=== PATIENT | female | born 1970 | race Caucasian/White ===

== ENCOUNTER 2019-10-15 16:45 | Outpatient (CLI) | payer SELFPAY ==
[2019-10-15 17:41] LABS: Basophils % 0.5 %; Eosinophils # 0.1 10^3/uL (0.0-0.8); Eosinophils % 1.2 %; Hematocrit 39.3 % (37.0-47.0); Hemoglobin 12.3 g/dL (11.5-15.3); Lymphocytes % 32.3 %; Mean Corpuscular HGB Conc 31.3 g/dL (30.0-36.0); Mean Corpuscular Volume 86.4 fL (81-99); Mean Platelet Volume 11.4 fL (7.4-10.4); Monocytes # 0.5 10^3/uL (0.2-0.9); Monocytes % 7.9 %; Neutrophils # 3.48 10^3/uL (1.8-7.7); Neutrophils % 57.6 %; Nucleated Red Blood Cells % 0 %; Platelet Count 295 10^3/cmm (130-400); Red Blood Count 4.55 10^6/uL (4.1-5.3); Red Cell Distribution Width 14.2 % (12.1-15.1)
[2019-10-15 18:08] LABS: Estmated Average Glucose 160; Hemoglobin A1C 7.2 % (4.0-6.0)
[2019-10-15 18:11] LABS: Alanine Aminotransferase 18 U/L (0-33); Albumin Level 4.5 g/dL (3.5-5.2); Alkaline Phosphatase 71 IU/L (35-105); Anion Gap 15.1 (5-19); Aspartate Amino Transferase 14 U/L (0-32); Blood Urea Nitrogen 15 mg/dL (6-20); Calcium 9.9 mg/dL (8.5-10.5); Carbon Dioxide 25 mmol/L (22-29); Chloride 99 mmol/L (98-107); Chol HDL Ratio 3.91 mg/dL (0.0-4.40); Cholesterol 211 mg/dL (0-200); Glomerular Filtration Rate 88.6 mL/min (90-130); Glucose 144 mg/dL (65-115); HDL Cholesterol 54 mg/dL (60-100); LDL Cholesterol Calculated 96 mg/dL (50-129); LDL HDL Ratio 1.78 RATIO (0.00-3.22); Osmolality Calculated 279 mOsm/kg (285-295); Potassium 4.1 mmol/L (3.5-5.1); Sodium 135 mmol/L (136-145); Total Bilirubin 0.2 mg/dL (0.15-1.2); Total Protein 7.5 g/dL (6.6-8.7); Triglycerides 306 mg/dL (0-150)
== END 2019-10-15 16:46 | disposition home or self-care (01) ==
PROVIDERS: Visit Provider General Practice
DX: M19.90 Unspecified osteoarthritis, unspecified site (principal)
CPT/HCPCS: 80053; 80061; 83036; 85025

== ENCOUNTER → 2020-10-06 10:01 | Outpatient (BNVA) | payer MEDICAID, SELFPAY | PROVIDERS: Referring Provider Physician Assistant; Visit Provider Anesthesiology Pain Medicine | DX: G89.29 Other chronic pain (principal); M51.16 Intervertebral disc disorders with radiculopathy, lumbar region; M48.062 Spinal stenosis, lumbar region with neurogenic claudication; M43.10 Spondylolisthesis, site unspecified; M79.604 Pain in right leg; M79.605 Pain in left leg | CPT/HCPCS: 99204 ==

== ENCOUNTER 2020-10-13 13:04 | Outpatient (CLI) | payer MEDICAID, SELFPAY ==
--- NOTE | 2020-10-13 13:09 | MM_ITS ---
WS: [id number] BILATERAL DIGITAL SCREENING MAMMOGRAPHY WITH CAD CLINICAL INFORMATION: SCREENING HISTORY: Screening mammogram. No current complaints. COMPARISON: and 2013 TECHNIQUE: Bilateral CC and MLO views. FINDINGS: Scattered fibroglandular densities bilaterally. No suspicious focal mass, asymmetry, calcifications, or architectural distortion. No evidence of malignancy. A few incidental punctate calcifications. Noe ent centered calcifications left breast. MM/[place] [id number] IMPRESSION: BI-RADS: 2-Benign FOLLOW UP: 1 Year Follow-up Recommend return to annual screening mammography.
== END 2020-10-13 13:05 | disposition home or self-care (01) ==
LOC: RADSHAW 13:07
PROVIDERS: PCP Physician Assistant; Visit Provider Physician Assistant
DX: Z12.31 Encounter for screening mammogram for malignant neoplasm of breast (principal)
CPT/HCPCS: 77067

== ENCOUNTER 2020-10-26 09:36 | Outpatient (CLI) | payer MEDICAID, SELFPAY ==
--- NOTE | 2020-10-26 11:00 | MR_ITS ---
WS: [id number] MRI LUMBAR SPINE NONCONTRAST HISTORY: M48.062 - Spinal stenosis, lumbar region with neurogenic ... COMPARISON: Lumbar spine radiographs 09/27/2020 TECHNIQUE: Sagittal and axial multisequence imaging is submitted. Very slight increase in the lower lumbar lordosis. L4 anterolisthesis by 2 mm. Chronic degenerative endplate changes at L4-5 narrowing of the disc space. Bilateral pars defects or evidence of L4. Conus terminates normally at L1-2 disc level. L1-L2: Normal. L2-L3: No significant facet joint arthritis. No disc protrusion or stenosis. L3-L4: Mild to moderate bilateral facet joint arthritis. Mild ligamentum flavum arthritis and a small amount of fluid in the facet joints. Very mild encroachment into the ventral thecal sac and the fora men. Mild central and bilateral foraminal stenosis. L4-L5: Diffuse moderate annular disc bulging and osteophytic ridging. LEFT subarticular disc protrusi on contacting the undersurface of L4. There is a smaller disc protrusion on the RIGHT minimally conta cting the undersurface of L4 on the RIGHT. Mild bilateral facet joint arthritis and ligamentum flavum hypertrophy. Mild central stenosis. L5-S1: Small amount of fluid in the facet joints. Mild facet joint arthritis resulting in mild bilate ral foraminal stenosis. MR/MR lumbar spine wo con* [id number] IMPRESSION: 1. Moderate to severe degenerative disc disease and osteochondrosis at L4-5 du e to bilateral pars defects and spondylosis. 2. Mild central, bilateral subarticular recess and foraminal stenosis at L4-5 due to combination of disc disease, disc protrusions and osteophytes. Bilateral subarticular disc protrusions contacts the undersurface of the L4 nerve roots. 3. Mild central and bilateral foraminal stenosis at L3-4 and mild bilateral fo raminal stenosis at L5-S1.
== END 2020-10-26 09:37 | disposition home or self-care (01) ==
LOC: RADSHAW 09:39
PROVIDERS: PCP Physician Assistant; Visit Provider Anesthesiology Pain Medicine
DX: M48.062 Spinal stenosis, lumbar region with neurogenic claudication (principal); M51.36 Other intervertebral disc degeneration, lumbar region
CPT/HCPCS: 72148

== ENCOUNTER → 2020-11-03 10:07 | Outpatient (BNVA) | payer MEDICAID, SELFPAY | PROVIDERS: PCP Physician Assistant; Visit Provider Anesthesiology Pain Medicine | DX: M51.16 Intervertebral disc disorders with radiculopathy, lumbar region (principal); M43.10 Spondylolisthesis, site unspecified; M47.816 Spondylosis without myelopathy or radiculopathy, lumbar region | CPT/HCPCS: 99214 ==

== ENCOUNTER → 2020-11-14 13:21 | Outpatient (BNVA) | payer MEDICAID, SELFPAY | PROVIDERS: PCP Physician Assistant; Visit Provider Anesthesiology Pain Medicine | DX: M47.816 Spondylosis without myelopathy or radiculopathy, lumbar region (principal) | CPT/HCPCS: 64493; 64494; 64495; J3490 ==

== ENCOUNTER → 2020-12-09 10:22 | Outpatient (BNVA) | payer MEDICAID, SELFPAY | PROVIDERS: PCP Physician Assistant; Visit Provider Anesthesiology Pain Medicine | DX: M51.16 Intervertebral disc disorders with radiculopathy, lumbar region (principal); M47.816 Spondylosis without myelopathy or radiculopathy, lumbar region; M43.10 Spondylolisthesis, site unspecified; M79.604 Pain in right leg; M79.605 Pain in left leg | CPT/HCPCS: 99214 ==

== ENCOUNTER 2021-08-01 14:18 | Emergency (ER) | payer MEDICAID, SELFPAY ==
[2021-08-01 14:26] VITALS: BP 158/100; PULSE 89; RESP 20; TEMP 36.6; O2SAT 96
--- NOTE | 2021-08-01 15:16 | W.ED.DENTAL ---
HPI - Dental/Oral General: Chief complaint: Dental/Oral Stated complaint: Tooth pain Time Seen by Provider: 08/01/21 15:03 Source: patient Mode of arrival: ambulatory Limitations: no limitations History of Present Illness: Patient is a 51-year-old female presents to ED today with a complaint of right lower molar tooth pain over the past few days. Patient feels like the tooth broke a few days ago and she has been having pain ever since. She does report a previous filling to that tooth. Patient states she does not have a dentist at this time. She has not noticed any facial or neck swelling. She is not having any trouble eating, drinking, swallowing, or trouble breathing. MD Complaint: tooth pain and tooth injury Teeth map: 1. Relieving factors: nothing Exacerbating factors: chewing Context: history of dental caries and poor dental care Associated symptoms: Denies fever(s) or odynophagia Treatment prior to arrival: oral analgesic Review of Systems Const: Denies: fever(s), chills, body aches, fatigue or malaise ENMT: Reports: dental pain; Denies: throat pain, odynophagia, mouth pain, swelling of lips/tongue or oral sores Card: Denies: chest pain Resp: Denies: dyspnea GI: Denies: nausea or vomiting Musc: Denies: neck pain Skin/Breast: Denies: rash Neuro: Denies: headache(s) PFSH ED PFSH: Family History Grandmother Cancer Father Cancer Social History Second hand smoke exposure: No Alcohol intake: never History of recent travel: No Physical Exam Const: COMMON NORMALS: no acute distress, patient oriented x3, no limitations and alert HENMT: COMMON NORMALS: normocephalic, atraumatic, hearing grossly normal bilaterally, external ears normal, EAC's normal, TM's normal bilaterally, Normal nasal mucous membranes and turbinates present, moist oral mucous membranes, oropharynx normal and gingiva normal HEAD & SCALP: normal to inspection, normocephalic and atraumatic FACE & SINUS: normal facial exam NOSE: Normal nasal mucous membranes and turbinates present EXTERNAL EAR: Yes external ears normal EXTERNAL AUDITORY CANAL: EAC's normal TYMPANIC MEMBRANE: TM's normal bilaterally MOUTH: Normal oral and palatal mucosa present, lip normal and tongue normal TEETH & GINGIVA: Yes caries TEETH & GINGIVA IMAGES: 1. dental filling/decay; possible tooth fracture; no surrounding edema/abscess THROAT: posterior oropharynx normal, tonsils normal and uvula midline Neck/C-Spine: COMMON NORMALS: full ROM, no lymphadenopathy and no meningeal signs GENERAL: Yes normal visual inspection, No anterior neck swelling and No submandibular swelling Neuro: COMMON NORMALS: patient oriented x3 SENSORIUM/ORIENTATION: Yes alert MENINGEAL SIGNS: Yes no meningeal signs Course Vital Signs: Vital signs: Vital Signs Temperature 97.9 F 08/01/21 14:26 Pulse Rate 89 08/01/21 14:26 Respiratory Rate 20 H 08/01/21 14:26 Blood Pressure 158/100 08/01/21 14:26 Pulse Oximetry 96 08/01/21 14:26 MDM - Dental/Oral Medical Decision Making Patient will be given dental resources and we will go ahead and place her on some Pen VK for antibiotic coverage. Return to ED precautions verbally discussed with patient. Discharge Plan Discharge Patient Disposition: Home Clinical Impression: Dental caries, Toothache Condition: Stable Prescriptions: New penicillin V potassium 500 mg tablet 500 mg PO Q8H 7 Days Qty: 21 0RF No Action aspirin 81 mg tablet,chewable 81 mg PO DAILY 0RF duloxetine 60 mg capsule,delayed release(DR/EC) 60 mg PO DAILY 0RF metformin 500 mg tablet 500 mg PO BID 0RF loratadine [Allergy Relief (loratadine)] 10 mg tablet 10 mg PO DAILY 0RF acetaminophen 500 mg capsule 500 mg PO Q6H PRN0RF lovastatin 10 mg tablet 10 mg PO DAILY 0RF naproxen 500 mg tablet 500 mg PO DAILY 0RF metformin 1,000 mg tablet 1,000 mg PO BID 0RF ciprofloxacin-fluocinolone 0.3-0.025 % (0.25 mL) solution 0.25 ml otic (ear) BID 0RF tizanidine 2 mg tablet 2 mg PO BID PRN (Reason: muscle spasticity) Qty: 60 0RF Discharge Orders: Discharge ED (Routine); Ordered 08/01/21 Ordered By: Awa Dixon Referrals: Rekha Kruse PA [Primary Care Provider] - Patient Instructions: Dental Caries (Cavities), Toothache (ED) Coding Level of Care Code ED [facility] for Carina Mcclendon
== END 2021-08-01 15:34 | disposition home or self-care (01) ==
PROVIDERS: Emergency Provider Physician Assistant; PCP Physician Assistant
DX: K08.89 Other specified disorders of teeth and supporting structures (principal); K02.9 Dental caries, unspecified
CPT/HCPCS: 99283

== ENCOUNTER 2022-07-24 11:16 | Outpatient (CLI) | payer MEDICAID, SELFPAY ==
--- NOTE | 2022-07-24 11:27 | MR_ITS ---
WS: [id number] EXAMINATION: MR shoulder LT wo con* [id number] ORDER DATE: 07/24/2022 11:59 AM COMPARISON: None. HISTORY: PAIN OF LEFT SHOULDER CONTRAST: None. TECHNIQUE: Axial T2 STAR, coronal proton density fat sat, sagittal T2 fat sat, sagittal proton densit y fat sat, axial proton density fat sat, coronal T2 fat sat, and coronal T1 performed. After contrast , axial T1 fat sat, coronal T1 fat sat, and sagittal T1 fat sat were performed. FINDINGS: Advanced osteoarthritis of the glenohumeral joint. Moderate degenerative arthritis AC joint with mild edema. Subacromial space is preserved. Mild edema at the AC joint. Hypertrophic changes involving th e humeral neck and glenoid labrum. Small amount of subacromial and subdeltoid fluid. Distal supraspinatus appears intact. Mild chronic thinning of the distal supraspinatus. Infraspinatus appears intact. Normal teres minor. Subscapularis appears intact distally. Biceps tendon appears dis located from the bicipital groove proximally with intrasubstance partial tear. Tiny intra-articular b iceps tendon with partial tear. Chronic appearing irregularity of the glenoid labrum. Small joint eff usion. MR/MR shoulder LT wo con* [id number] IMPRESSION: Exam somewhat limited due to patient positioning due to limited ran ge of motion 1. Advanced degenerative arthritis at the glenohumeral joint with hypertrophic spurring along the humeral neck and glenoid. 2. Rotator cuff is grossly intact. Mild chronic thinning of the distal suprasp inatus. 3. Biceps tendon appears dislocated from the bicipital groove with intrasubsta nce tear. Tiny intra-articular biceps tendon likely due to partial tear. 4. Moderate degenerative arthritis AC joint with mild edema small amount of ontiveros bacromial/subdeltoid fluid. 5. Small joint effusion and subcoracoid effusion.
== END 2022-07-24 11:17 | disposition home or self-care (01) ==
LOC: RAD 11:22
PROVIDERS: PCP Physician Assistant; Visit Provider Physician Assistant
DX: S46.212A Strain of muscle, fascia and tendon of other parts of biceps, left arm, initial encounter (principal); X58.XXXA Exposure to other specified factors, initial encounter; M25.512 Pain in left shoulder; M19.012 Primary osteoarthritis, left shoulder
CPT/HCPCS: 73221

== ENCOUNTER → 2022-09-05 15:19 | Outpatient (BNVA) | payer MEDICAID, SELFPAY | PROVIDERS: PCP Physician Assistant; Visit Provider Specialist | DX: M19.112 Post-traumatic osteoarthritis, left shoulder (principal) | CPT/HCPCS: 73030; 99204 ==

== ENCOUNTER 2023-08-05 14:42 | Emergency (ER) | payer MEDICAID, SELFPAY ==
[2023-08-05 14:58] VITALS: BP 160/102; PULSE 78; RESP 15; TEMP 36.6; O2SAT 97
--- NOTE | 2023-08-05 17:20 | W.ED.EXTPRO ---
Documented by User: ILA Rojas 08/05/23 17:29 HPI - Extremity Problem General: Chief complaint: Extremity Injury, Lower Stated complaint: left foot toe pain Time Seen by Provider: 08/05/23 16:18 Source: patient Mode of arrival: ambulatory Limitations: no limitations History of Present Illness: Patient is a 53-year-old female presenting to the emergency department complaining of left great toe pain for the past few days. Patient states she believes she has an ingrown toenail as she has a history of the same. She states in the past he has had a toenail removed because of this, and this improved her pain. She also notes there is significant mount of bruising and redness around the medial part of her left great toe. She still has sensation distally and is not complaining of any joint pain. She did try to remove a portion of the nail, which caused a good amount of bleeding, though has not reported any purulent drainage. She is not having any fevers or other systemic signs of infection. She has no history of diabetes. She does note she has been taking hydrocodone at home for her pain, which has not done much. No other raiz-lvb-zxrobma remedies attempted such as ice. Complaint: extremity pain Onset (ago): day(s) Pain Consistency: constant Location: left Quality: sharp Radiation: none Relieving factors: nothing Exacerbating factors: palpation Associated symptoms: Reports no associated symptoms; Deny chest pain, fever(s) or rash Review of Systems General: Reports: 10 or more systems reviewed and unremarkable except in HPI and below Const: Denies: fever(s), chills or fatigue Eyes: Denies: change in vision ENMT: Denies: throat pain, ear or mastoid pain or nasal discharge Card: Denies: chest pain, palpitations, swelling of feet/ankles or lightheadedness Resp: Denies: dyspnea, productive cough or wheezing GI: Denies: abdominal pain, nausea, vomiting, diarrhea or constipation : Denies: flank pain, difficulty voiding, dysuria or urinary frequency Musc: Reports: extremity pain (Left toe pain/infection); Denies: neck pain, back pain or joint pain Skin/Breast: Denies: rash Neuro: Denies: headache(s), numbness in extremities or weakness in extremities PFS ED PFSH: Family History Grandmother Cancer Father Cancer Social History Second hand smoke exposure: No Alcohol intake: never Substance/Drug Use: never Physical Exam Const: COMMON NORMALS: no acute distress, patient oriented x3 and no limitations GENERAL APPEARANCE: cooperative and comfortable NUTRITIONAL APPEARANCE: obese Resp: COMMON NORMALS: normal respiratory effort, No retractions, No use of accessory muscles and clear to auscultation bilaterally AUSCULTATION: clear to auscultation bilaterally Cardio: COMMON NORMALS: regular rate, regular rhythm, No gallops present (Cardio), No clicks present (Cardio), No murmurs present (Cardio) and Peripheral pulses 2+ throughout RATE: regular rate RHYTHM: regular rhythm PERIPHERAL PULSES: Peripheral pulses 2+ throughout Extremity: NARRATIVE EXTREMITY EXAM: Left great toe has moderate amount of erythema with some bruising to the medial aspect of the nail. No fluctuance appreciated. No active purulent drainage or bleeding. Distal neurovascular exam is intact. Moderate tenderness to palpation about the distal aspect of the left great toe. No joint pain or other proximal findings reported. Nailbed otherwise intact. Neuro: COMMON NORMALS: patient oriented x3, moves all extremities, no focal motor deficits and no sensory deficits noted Psych: COMMON NORMALS: mental status grossly normal Skin: NARRATIVE SKIN EXAM: See extremity exam Procedures Abscess I/D Site: foot Side (if applicable): left Sedation/analgesia: other (Ring block performed) Local Anesthetic: lidocaine 1% Amount of anesthesia used (mL): 5 Technique: needle aspiration Irrigation: Yes Packing used?: none Course Vital Signs: Vital signs: Vital Signs Temperature 97.8 F 08/05/23 14:58 Pulse Rate 78 08/05/23 14:58 Respiratory Rate 15 08/05/23 14:58 Blood Pressure 160/102 08/05/23 14:58 Pulse Oximetry 97 08/05/23 14:58 Oxygen Delivery Me thod Room Air 08/05/23 14:58 MDM - Extremity (Nontraumatic) Medical Decision Making Patient seen for left great toe pain for the past few days. Vitals normal on arrival, condition has remained stable. Exam findings consistent with a paronychia. An I&D was attempted, however no purulent drainage expressed. Patient did note pain relief from digital block, as well as pressure release. Minimal blood loss was noted. Patient will be treated with oral and topical antibiotics, and referred to podiatry for further evaluation. Cannot rule out a fungal cause for her pain, though she does not have history of diabetes. I did inform her that if she continues to have worsening pain or signs of infection, to return for reevaluation. Patient will continue to take her hydrocodone at home for pain, as well as to do warm soaks and ice for added relief. Return precautions were given, and patient agrees with plan. No radiology studies performed this visit Discharge Plan Discharge Patient Disposition: Home Clinical Impression: Paronychia due to ingrown nail Condition: Stable Prescriptions: New cephalexin 500 mg capsule 500 mg PO TID 7 Days Qty: 21 0RF mupirocin 2 % ointment 1 applic topical BID Qty: 15 0RF No Action aspirin 81 mg tablet,chewable 81 mg PO DAILY duloxetine 60 mg capsule,delayed release(DR/EC) 60 mg PO DAILY metformin 500 mg tablet 500 mg PO BID loratadine [Allergy Relief (loratadine)] 10 mg tablet 10 mg PO DAILY acetaminophen 500 mg capsule 500 mg PO Q6H PRN lovastatin 10 mg tablet 10 mg PO DAILY naproxen 500 mg tablet 500 mg PO DAILY metformin 1,000 mg tablet 1,000 mg PO BID tizanidine 2 mg tablet 2 mg PO BID PRN (Reason: muscle spasticity) Qty: 60 0RF Discharge Orders: Discharge ED (Routine); Ordered 08/05/23 Ordered By: Pavel Mitchell Referrals: Rekha Kruse PA [Primary Care Provider] - Discharge Diet: Usual diet Discharge Activity: Increase activity as tolerated Patient Instructions: Paronychia (ED) Activity Restrictions/Additional Instructions: Warm water soaks for 10-15 minutes every few hours. Afterwards, you may apply mupirocin ointment. Take Keflex as prescribed. You may apply ice for added relief. Follow-up with podiatry as instructed. If you have any new or concerning symptoms, please return for reevaluation. Monitor for any worsening signs of infection. Coding Level of Care Code ED Computer Technical Specialist for Chg Fwd Documented by User: Foreign Gomes DO 08/06/23 10:57 HPI - Extremity Problem General: Chief complaint: Extremity Injury, Lower Stated complaint: left foot toe pain Time Seen by Provider: 08/05/23 16:18 PFSH ED PFSH: Family History Grandmother Cancer Father Cancer Social History Second hand smoke exposure: No Alcohol intake: never Substance/Drug Use: never Course Vital Signs: Vital signs: Vital Signs Temperature 97.8 F 08/05/23 14:58 Pulse Rate 78 08/05/23 14:58 Respiratory Rate 15 08/05/23 14:58 Blood Pressure 160/102 08/05/23 14:58 Pulse Oximetry 97 08/05/23 14:58 Oxygen Delivery Me thod Room Air 08/05/23 14:58 MDM - Extremity (Nontraumatic) Medical Decision Making Patient seen for left great toe pain for the past few days. Vitals normal on arrival, condition has remained stable. Exam findings consistent with a paronychia. An I&D was attempted, however no purulent drainage expressed. Patient did note pain relief from digital block, as well as pressure release. Minimal blood loss was noted. Patient will be treated with oral and topical antibiotics, and referred to podiatry for further evaluation. Cannot rule out a fungal cause for her pain, though she does not have history of diabetes. I did inform her that if she continues to have worsening pain or signs of infection, to return for reevaluation. Patient will continue to take her hydrocodone at home for pain, as well as to do warm soaks and ice for added relief. Return precautions were given, and patient agrees with plan. Chart reviewed Discharge Plan Discharge Patient Disposition: Home Clinical Impression: Paronychia due to ingrown nail Condition: Stable Prescriptions: New cephalexin 500 mg capsule 500 mg PO TID 7 Days Qty: 21 0RF mupirocin 2 % ointment 1 applic topical BID Qty: 15 0RF No Action aspirin 81 mg tablet,chewable 81 mg PO DAILY duloxetine 60 mg capsule,delayed release(DR/EC) 60 mg PO DAILY metformin 500 mg tablet 500 mg PO BID loratadine [Allergy Relief (loratadine)] 10 mg tablet 10 mg PO DAILY acetaminophen 500 mg capsule 500 mg PO Q6H PRN lovastatin 10 mg tablet 10 mg PO DAILY naproxen 500 mg tablet 500 mg PO DAILY metformin 1,000 mg tablet 1,000 mg PO BID tizanidine 2 mg tablet 2 mg PO BID PRN (Reason: muscle spasticity) Qty: 60 0RF Discharge Orders: Discharge ED (Routine); Ordered 08/05/23 Ordered By: Pavel Mitchell Referrals: Rekha Kruse PA [Primary Care Provider] - Discharge Diet: Usual diet Discharge Activity: Increase activity as tolerated Patient Instructions: Paronychia (ED) Activity Restrictions/Additional Instructions: Warm water soaks for 10-15 minutes every few hours. Afterwards, you may apply mupirocin ointment. Take Keflex as prescribed. You may apply ice for added relief. Follow-up with podiatry as instructed. If you have any new or concerning symptoms, please return for reevaluation. Monitor for any worsening signs of infection. Coding Level of Care Code ED Computer Technical Specialist for Carina Mcclendon
--- NOTE | 2023-08-06 12:45 | DCPLANNER ---
Message sent to Podiatry for follow up-
== END 2023-08-05 17:07 | disposition home or self-care (01) ==
PROVIDERS: Emergency Provider Physician Assistant; PCP Physician Assistant
DX: L03.032 Cellulitis of left toe (principal); L60.0 Ingrowing nail; Z79.82 Long term (current) use of aspirin; Z79.84 Long term (current) use of oral hypoglycemic drugs
CPT/HCPCS: 10160; 99283

== ENCOUNTER → 2023-08-15 10:49 | Outpatient (BNVA) | payer MEDICAID, SELFPAY | PROVIDERS: PCP Physician Assistant; Visit Provider Podiatrist Foot & Ankle Surgery | DX: L60.0 Ingrowing nail (principal) | CPT/HCPCS: 99203 ==

== ENCOUNTER 2025-03-09 18:08 | Emergency (ER) | payer MEDICAID, SELFPAY ==
--- OUTSIDE RECORDS SUMMARY | 2024-05-07 07:00 | XMS_ITS ---
Author Organization [facility] Address [address] [place] [address] Support Name Relationship Address , Gurjit Duran Emergency Contact Unknown Unavailable Shruti Duran Guarantor Unknown [phone] Care Team Providers Care Investment Advisor Name Role Phone Uriah THORPE, Rekha Primary Care Provider Ghazala Jacobyer Loli Unavailable [phone] Mia Leyva Unavailable [phone] REASON FOR VISIT [id number] Social History Sex Assigned At : Social History Observation Description Sex Assigned At Female Encounters Encounter Location Date Provider Diagnosis [facility] [address] [place] [address] 05/07/2024 Mia Leyva Plan Of Treatment Next Appt Details Provider Name:Marcel Gallo, 04/28/2025 02:00:00 PM, [address] [place], [address], Progress Notes * Shruti DURAN MDOB:1970 (54 yo F)Acc No.[id number]:05/07/2024 Patient: Queta Shruti hu Provider: Edward Leyva MD :1970 A ge:53 Y S ex:Female Date:05/07/2024 Address:[address] [place], [place] [id number] Pcp:ILA Lees Subjective: * Chief Complaints: * [phone] [id number] Billing Information: * Procedure Codes: * Electronic signature of Berta Leyva MD on 03/09/2025 at 06:12 PM CP BLEACHER OPERATOR Sign off status: Pending * Provider: Edward Leyva MD Date: 0 05/07/2024 Generated for Pamela duffy/Unique/Maryuri on: 1 05/10/2024 06:12 PM CP BLEACHER OPERATOR
--- OUTSIDE RECORDS SUMMARY | 2025-03-09 18:11 | XMS_ITS | Clinical Summary ---
Author Organization [facility] Address [address] [place] [address] Phone Care Team Providers Care Neon Sign Erector Name Role Phone Foreign Gomes Primary Care Provider [phone] Allergies No known active allergies Medications HYDROcodone-tatiana taminophen (NORCO) 5-325 mg tabletIndicatio ns:Acute bilateral low back pain without sciatica,Acute pain of left shoulder Take 1 Tablet by mouth every 8 hours as needed for Pain, Moderate. Max Daily Amount: 3 Tablets 10 Tablet 04/22/2022 Active Social History Tobacco Use Types Packs/Day Years Used Date Smoking Tobacco: Never Smokeless Tobacco: Never Tobacco Cessation:Counseling Given: Not Answered Alcohol Use Standard Drinks/Week Comments Never 0 (1 standard drink = 0.6 oz pur e alcohol) Comments Unknown Sex and Gender Information Value Date Recorded Sex Assigned at Not on file Legal Sex Female 1:44 PM HATCH TENDER Gender Identity Not on file Sexual Orientation Not on file Last Filed Vital Signs Vital Sign Reading Time Taken Comments Blood Pressure 156/99 04/21/2022 10:53 PM HATCH TENDER Pulse 90 04/21/2022 10:53 PM HATCH TENDER Temperature 36.7 C (98 F) 04/21/2022 10:53 PM HATCH TENDER Respiratory Rate 16 04/21/2022 10:5 3 PM HATCH TENDER Oxygen Saturation 100% 04/21/2022 10: 53 PM HATCH TENDER Inhaled Oxygen Concentration - - Weight 133.8 kg (295 lb) 04/21/2022 1:5 0 PM HATCH TENDER unable to obtain actual Height - - Body Mass Index - - Plan of Treatment Health Maintenance Due Date Last Done Comments DTAP/TDAP/TD VACCINES (1 - Tdap) 1988 HEPATITIS B VACCINES (1 of 3 - 19+ 3-dose series) 04/1988 HPV/Cotest (21-29) 1990 CERVICAL CANCER SCREENING 07/25/1999 HPV/Cotest (30-65) 07/25/1999 PAP SMEAR 07/25/1999 BREAST CANCER SCREENING 2009 COLORECTAL SCREENING 2014 Colorectal Cancer Screening 2014 FIT-DNA Q 3 years 2014 FIT/FOBT Q 1 year 2014 Flex Sig/CT Colonography Q 5 years 2014 ZOSTER VACCINE (1 of 2) 07/25/2019 INFLUENZA VACCINE (#1) 2024 [place] Sub[place] Plan / Payer (Ef fective 2021-Present) Name:Shruti Duran Relation to Subscriber:Self Name:Shruti Duran Payer ID:Not on file Group ID:Not on file Type:Medicaid Address: [address] Care Teams Neon Sign Erector Relationship Specialty Start Date End Date Foreign Gomes DO PCP - General Family Practice 04/22/22
--- OUTSIDE RECORDS SUMMARY | 2025-03-09 18:11 | XMS_ITS | Data Portability ---
Author Organization [facility] Sathya Pemberton [facility] Address [address] [facility] [address] [place] [address] Care Team Providers Care Writing Center Director Name Role Phone REKHA KRUSE Primary Care Provider Unavailabl e Assessment No assessment recorded. Plan of Treatment Reminders Order Date Submit Date Provider Last Modified By Organization Details Last Modified Time Details Appointments None recorded. Lab HbA1c (hemoglobin A1c), blood 2024 025 [email or web address] 1 [facility], [address], [place], [address], 5 12:28:13 BMP, serum or plasma 2024 025 [facility], [address], [address], [place], [address], 5 16:07:51 microalbumi n/creatinin e, mass ratio, urine 2024 025 [employer] [facility], [address] [place] [address] [address], [address], [place], [address], 5 12:00:38 hemoglobin A1C/hemoglo bin total, QN, blood 2024 025 [facility], [address], [address], [place], [address], 5 16:40:45 CMP, serum or plasma [address] [facility], [address], [address], [place], [address], 5 16:07:13 CBC [address] [facility], [address], [address], [place], [address], 5 15:42:45 HbA1c (hemoglobin A1c), blood 2023 024 [email or web address], [address], [address], [place], [address], 4 07:25:42 CMP, serum or plasma 2023 024 [facility], [address], [place], [address], 4 17:07:08 CBC [address] [facility] [facility], [address], [address], [place], [address], 4 16:43:48 TSH, serum or plasma 2023 024 [email or web address], [address], [address], [place], [address], 4 07:25:42 HbA1c (hemoglobin A1c), blood [address] [facility] ([facility]), [address] [place], [address], 4 17:03:56 CMP, serum or plasma [address] [facility], [address] [facility] 1, [place], [address], 4 17:14:26 lipid panel, blood 2023 024 [facility], [address] [facility] 1, [place], [address], 4 17:14:28 CBC 2023 024 [facility], [address] [facility] 1, [place], [address], 4 16:44:40 TSH, serum or plasma [address] [facility] ([facility] [address] [place], [address], 4 17:41:10 Referral otolaryngol ogist referral 2023 024 [email or web address] 8 Donny Johnson MD, [address] , [place], [address], 4 13:32:51 Procedures tendon sheath injection (PROC) [address], [address] [facility] 1, [place], [address], 5 15:18:25 Surgeries None recorded. Imaging nerve conduction study [address] [facility], [address] [place], [address], 5 16:52:00 MAMMO, screening, digital, bilateral 2024 025 [facility] (Scheduling Orders), [address] [place], [address], 5 09:03:04 XR, wrist, 3 or more view 2024 025 [email or web address] 2 [facility] ([facility]), [address] [place], [address], 5 16:05:08 MAMMO, screening, digital, bilateral 2023 024 [email or web address] 2 [facility] (Scheduling Orders), [address] [place], [address], 4 15:46:47 XR, shoulder, 2 or more view 2023 024 [email or web address] [address] [place], [address], 4 09:28:14 Medication Orders triamcinolo ne acetonide 40 mg/mL suspension for injection 2024 025 [email or web address] 1 Not available 5 15:44:49 Ozempic 1 mg/dose (4 mg/3 mL) subcutaneou s pen injector 2024 025 [facility]armacy #[id number], [address] [facility] [address], [address], 5 15:06:09 OneTouch Ultra Test strips 2024 025 [facility]/Pharmacy #[id number], [address] [facility] [address], [address], 5 14:14:47 oxybutynin chloride ER 10 mg tablet,exte nded release 24 hr 2023 024 [facility]/Pharmacy #[id number], [address] [facility] [address], [address], 4 16:00:37 Trulicity 3 mg/0.5 mL subcutaneou s pen injector 2023 025 [facility]/Pharmacy #[id number], [address], [address], [place], [address], 5 15:09:44 loratadine 10 mg tablet 2023 024 [facility]/Pharmacy #[id number], [address], [address], [place], [address], 4 16:00:37 acyclovir [address] [id number], [address], [address], [place], [address], 4 15:33:35 duloxetine 60 mg capsule,del ayed release 2023 024 [id number], [address], [address], [place], [address], 4 16:25:04 Ozempic 0.25 mg or 0.5 mg (2 mg/3 mL) subcutaneou s pen injector [address] [id number], [address], [address], [place], [address], 4 13:28:30 Symbicort 160 mcg-4.5 mcg/actuati on HFA aerosol inhaler 2023 024 [id number], [address], [address], [place], [address], 4 16:25:04 sumatriptan 50 mg tablet 2023 024 [id number], [address], [address], [place], [address], 4 16:25:03 Aimovig Autoinjecto r 140 mg/mL subcutaneou s auto-inject or 2023 024 [facility]acy #[id number], [address], [address], [place], [address], 4 15:33:48 metoprolol succinate ER 50 mg tablet,exte nded release 24 hr 2023 024 [facility] #[id number], [address], [address], [place], [address], 4 16:25:03 albuterol sulfate 2.5 mg/3 mL (0.083 %) solution for nebulizatio n 2023 024 [email or web address] [facility] #[id number], [address], [address], [place], [address], 4 16:25:04 levothyroxi ne 50 mcg tablet 2023 024 [email or web address] 1 [facility] #[id number], [address], [address], [place], [address], 5 18:44:30 Patient TargetsNo targets recorded. 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 Hearing loss of left ear Referring Physician: eRkha Kruse, Family Medicine, Encounter Date: 11/07/2023 Results Created Date Observation Date Name Description Value Unit Range Abnormal Flag Note LastModifiedBy Organization Detail LastModifiedTime 11/07/19 24 11/07/2023 CBC WBC 4.0 x10 4.0-10 .5 Not Available [facility] [address], [place], [address], 11/07/2023 16:44:40 11/07/19 24 11/07/2023 CBC RBC 4.47 x10 3.50-5 .50 Not Available [facility] [address] [facility] 1, [place], [address], 11/07/2023 16:44:40 11/07/19 24 11/07/2023 CBC HGB 12.1 g/dL 12.0-1 6.0 Not Available [facility] [address] [facility] 1, [place], [address], 11/07/2023 16:44:40 11/07/19 24 11/07/2023 CBC HCT 36.0 % 37.0-4 7.0 low Not Available [facility] [address] [facility] 1, [place], [address], 11/07/2023 16:44:40 11/07/19 24 11/07/2023 CBC MCV 80.5 fL 80.0-9 9.9 Not Available [facility] [address] [facility] 1, [place], [address], 11/07/2023 16:44:40 11/07/19 24 11/07/2023 CBC MCH 27.0 pg 27.0-3 2.0 Not Available [facility] [address] [facility] 1, [place], [address], 11/07/2023 16:44:40 11/07/19 24 11/07/2023 CBC MCHC 33.5 g/dL 32.0-3 6.0 Not Available [facility] [address] [facility] 1, [place], [address], 11/07/2023 16:44:40 11/07/19 24 11/07/2023 CBC RDW 17.0 % 11.5-1 4.5 high Not Available [facility] [address] [facility] [address], [place], [address], 11/07/2023 16:44:40 11/07/19 24 11/07/2023 CBC plt 204.2 x10 140.0- 451.0 Not Available [facility] [address] [facility] [address], [place], [address], 11/07/2023 16:44:40 11/07/19 24 11/07/2023 CBC lymphocytes % 32.6 % 20.0-5 0.0 Not Available [facility] [address] [facility] [address], [place], [address], 11/07/2023 16:44:40 11/07/19 24 11/07/2023 CBC granulcytes % 55.0 % 30.0-7 0.0 Not Available [facility] [address] [address], [place], [address], 11/07/2023 16:44:40 11/07/19 24 11/07/2023 CBC monocytes % 10.2 % 2.0-16 .0 Not Available [facility] [address] [facility] 1, [place], [address], 11/07/2023 16:44:40 11/07/19 24 11/07/2023 CBC granulcytes# 2.2 x10 Not Chiara ilable [facility] [address] [address], [place], [address], 11/07/2023 16:44:40 11/07/19 24 11/07/2023 CBC lymphocytes # 1.3 x10 Not Available [facility] [address] [address], [place], [address], 11/07/2023 16:44:40 11/07/19 24 11/07/2023 CBC monocytes # 0.4 x10 Not Avai lable [facility] [address] [facility] [facility], [place], [address], 11/07/2023 16:44:40 11/07/19 24 11/07/2023 CMP (FEMA LE) glucose 246.0 mg/dL 60.0-9 9.0 high Not Available [facility] [address] [facility], [place], [address], 11/07/2023 17:14:26 11/07/19 24 11/07/2023 CMP (FEMA LE) BUN (blood urea nitrogen) 13.0 mg/dL 10.0-2 6.0 Not Available [facility] [address] [facility], [place], [address], 11/07/2023 17:14:26 11/07/19 24 11/07/2023 CMP (FEMA LE) creatinine (serum) 0.7 mg/dL 0.4-1. 5 Not Available [facility] [address] [facility] 1, [place], [address], 11/07/2023 17:14:26 11/07/19 24 11/07/2023 CMP (FEMA LE) BUN/creatini ne ratio 19.70 ratio Not Available [facility] [address] [facility] 1, [place], [address], 11/07/2023 17:14:26 11/07/19 24 11/07/2023 CMP (FEMA LE) eGFR calculated 99.2 Not Available [facility] [address] [facility], [place], [address], 11/07/2023 17:14:26 11/07/19 24 11/07/2023 CMP (FEMA LE) total protein 8.1 g/dL 6.0-8. 5 Not Available [facility] [address] [facility], [place], [address], 11/07/2023 17:14:26 11/07/19 24 11/07/2023 CMP (FEMA LE) total bilirubin 0.3 mg/dL 0.2-1. 3 Not Available [facility] [address] [facility] [address] [facility] 1, [place], [address], 11/07/2023 17:14:26 11/07/19 24 11/07/2023 CMP (FEMA LE) albumin 4.3 g/dL 3.5-5. 5 Not Available [facility] [address] [facility] 1, [place], [address], 11/07/2023 17:14:26 11/07/19 24 11/07/2023 CMP (FEMA LE) globulin 3.8 calc Not Available [facility] [address] [facility], [place], [address], 11/07/2023 17:14:26 11/07/19 24 11/07/2023 CMP (FEMA LE) AST (SGOT) 29.0 U/L 0.0-46 .0 Not Available [facility] [address] [facility], [place], [address], 11/07/2023 17:14:26 11/07/19 24 11/07/2023 CMP (FEMA LE) altv (SGPT) 24.0 U/L 13.0-6 9.0 normal Not Available [facility] [address] [facility] [address] [facility] [address] [facility] 1, [place], [address], 11/07/2023 17:14:26 11/07/19 24 11/07/2023 CMP (FEMA LE) A/G ratio 1.1 ratio Not Available [facility] [address] [facility], [place], [address], 11/07/2023 17:14:26 11/07/19 24 11/07/2023 CMP (FEMA LE) ALP phos 88.0 U/L 30.0-1 40.0 normal Not Available [facility] [address] [facility] 1, [place], [address], 11/07/2023 17:14:26 11/07/19 24 11/07/2023 CMP (FEMA LE) calcium 9.8 mg/dL 8.4-10 .5 Not Available [facility] [address] [facility] 1, [place], [address], 11/07/2023 17:14:26 11/07/1911/07/2023 CMP (FEMA LE) sodium 138.0 mmol/ L 136.0- 145.0 Not Available [facility] [address] [facility] 1, [place], [address], 11/07/2023 17:14:26 11/07/19 24 11/07/2023 CMP (FEMA LE) potassium 4.3 mmol/ L 3.5-5. 1 Not Available [facility] [address] [facility] 1, [place], [address], 11/07/2023 17:14:26 11/07/19 24 11/07/2023 CMP (FEMA LE) chloride 104.0 mmol/ L 98.0-1 10.0 normal Not Available [facility] [address] [facility] 1, [place], [address], 11/07/2023 17:14:26 11/07/19 24 11/07/2023 CMP (FEMA LE) C02 28.0 mmol/ L 22.0-3 1.0 Not Available [facility] [address] [facility] 1, [place], [address], 11/07/2023 17:14:26 11/07/19 24 11/07/2023 CMP (FEMA LE) anion gap 6.0 calc Not Available [facility] [address] [facility] 1, [place], [address], 11/07/2023 17:14:26 11/07/19 24 11/07/2023 CMP (FEMA LE) osmolality 292.6 calc Not Available [facility] [address] [facility] 1, [place], [address], 11/07/2023 17:14:26 11/07/19 24 11/07/2023 LIPID PROFI LE (FEMA LE) cholesterol 202.0 mg/dL 0.0-20 0.0 high Not Available [facility] [address] [facility] 1, [place], [address], 11/07/2023 17:14:28 11/07/19 24 11/07/2023 LIPID PROFI LE (FEMA LE) trig 358.0 mg/dL 0.0-15 0.0 high Not Available [facility] [address] [facility] 1, [place], [address], 11/07/2023 17:14:28 11/07/19 24 11/07/2023 LIPID PROFI LE (FEMA LE) HDL - direct 51.0 mg/dL >40.0 Not Available [facility] [address] [facility] 1, [place], [address], 11/07/2023 17:14:28 11/07/19 24 11/07/2023 LIPID PROFI LE (FEMA LE) VLDL - direct 71.6 mg/dL Not Available [facility] [address] [facility] 1, [place], [address], 11/07/2023 17:14:28 11/07/19 24 11/07/2023 LIPID PROFI LE (FEMA LE) LDL - direct 79.4 mg/dL 0.0-13 0.0 Not Available [facility] [address] [facility] 1, [place], [address], 11/07/2023 17:14:28 11/07/19 24 11/07/2023 TSH, serum or plasm a TSH 8.07 uIU/m L 0.49-3 .82 Not Available [facility] ([facility]) [address] [place], [address], 11/07/2023 16:11:49 11/07/19 24 11/07/2023 HbA1c (hemo globi n A1c), blood HbA1c 8.0 Not Available [facility] ([facility]) [address] [place], [address], 11/07/2023 16:09:58 11/21/19 24 11/21/2023 colon cance r scree hina, stool cologard neg Not Available [facility] [address], [place], [address], 11/27/2023 11:08:25 02/11/20 24 02/11/2024 CBC WBC 5.0 x10 4.0-10 .5 Not Available [facility] [address] [facility] 1, [place], [address], 02/11/2024 16:43:48 02/11/20 24 02/11/2024 CBC RBC 4.60 x10 3.50-5 .50 Not Available [facility] [address] [facility] 1, [place], [address], 02/11/2024 16:43:48 02/11/20 24 02/11/2024 CBC HGB 13.0 g/dL 12.0-1 6.0 Not Available [facility] [address] [facility] 1, [place], [address], 02/11/2024 16:43:48 02/11/20 24 02/11/2024 CBC HCT 38.1 % 37.0-4 7.0 Not Available [facility] [address] [address] [facility] 1, [place], [address], 02/11/2024 16:43:48 02/11/20 24 02/11/2024 CBC MCV 82.8 fL 80.0-9 9.9 Not Available [facility] [address] [facility] [address] [facility] 1, [place], [address], 02/11/2024 16:43:48 02/11/2002/11/2024 CBC MCH 28.3 pg 27.0-3 2.0 Not Available [facility] [address] 1, [place], [address], 02/11/2024 16:43:48 02/11/20 24 02/11/2024 CBC MCHC 34.2 g/dL 32.0-3 6.0 Not Available [facility] [address] [facility] [address] [facility] 1, [place], [address], 02/11/2024 16:43:48 02/11/2002/11/2024 CBC RDW 14.9 % 11.5-1 4.5 high Not Available [facility] [address] [facility] [address] [facility] 1, [place], [address], 02/11/2024 16:43:48 02/11/2002/11/2024 CBC plt 189.2 x10 140.0- 451.0 Not Available [facility] [address] [facility] [address] [facility] 1, [place], [address], 02/11/2024 16:43:48 02/11/20 24 02/11/2024 CBC lymphocytes % 33.7 % 20.0-5 0.0 Not Available [facility] [address] [facility] [address] [facility] 1, [place], [address], 02/11/2024 16:43:48 02/11/20 24 02/11/2024 CBC granulcytes % 54.8 % 30.0-7 0.0 Not Available [facility] [address] [facility], [place], [address], 02/11/2024 16:43:48 02/11/20 24 02/11/2024 CBC monocytes % 9.8 % 2.0-16 .0 Not Available [facility] [address] [facility], [place], [address], 02/11/2024 16:43:48 02/11/20 24 02/11/2024 CBC granulcytes# 2.7 x10 Not Chiara ilable [facility] [address] [facility] [address], [place], [address], 02/11/2024 16:43:48 02/11/20 24 02/11/2024 CBC lymphocytes # 1.7 x10 Not Available [facility] [address] [facility] 1, [place], [address], 02/11/2024 16:43:48 02/11/20 24 02/11/2024 CBC monocytes # 0.5 x10 Not Avai lable [facility] [address] [facility] 1, [place], [address], 02/11/2024 16:43:48 02/11/20 24 02/11/2024 HBA1C hemaglobin A1C 6.5 4.2-6. 5 Not Available [facility] [address] [facility] 1, [place], [address], 02/11/2024 16:55:38 02/11/20 24 02/11/2024 CMP (FEMA LE) glucose 104.0 mg/dL 60.0-9 9.0 high Not Available [facility] [address] [address], [place], [address], 02/11/2024 17:07:08 02/11/20 24 02/11/2024 CMP (FEMA LE) BUN (blood urea nitrogen) 12.0 mg/dL 10.0-2 6.0 Not Available [facility] [address] [facility] 1, [place], [address], 02/11/2024 17:07:08 02/11/20 24 02/11/2024 CMP (FEMA LE) creatinine (serum) 0.7 mg/dL 0.4-1. 5 Not Available [facility] [address] [facility] 1, [place], [address], 02/11/2024 17:07:08 02/11/20 24 02/11/2024 CMP (FEMA LE) BUN/creatini ne ratio 17.14 ratio Not Available [facility] [address] [address], [place], [address], 02/11/2024 17:07:08 02/11/20 24 02/11/2024 CMP (FEMA LE) eGFR calculated 92.7 Not Available [facility] [address] [facility] 1, [place], [address], 02/11/2024 17:07:08 02/11/20 24 02/11/2024 CMP (FEMA LE) total protein 8.5 g/dL 6.0-8. 5 Not Available [facility] [address] [address], [place], [address], 02/11/2024 17:07:08 02/11/20 24 02/11/2024 CMP (FEMA LE) total bilirubin 0.4 mg/dL 0.2-1. 3 Not Available [facility] [address] [address], [place], [address], 02/11/2024 17:07:08 02/11/20 24 02/11/2024 CMP (FEMA LE) albumin 4.7 g/dL 3.5-5. 5 Not Available [facility] [address] [facility], [place], [address], 02/11/2024 17:07:08 02/11/20 24 02/11/2024 CMP (FEMA LE) globulin 3.8 calc Not Available [facility] [address] [facility] 1, [place], [address], 02/11/2024 17:07:08 02/11/20 24 02/11/2024 CMP (FEMA LE) AST (SGOT) 19.0 U/L 0.0-46 .0 Not Available [facility] [address] [facility], [place], [address], 02/11/2024 17:07:08 02/11/20 24 02/11/2024 CMP (FEMA LE) altv (SGPT) 20.0 U/L 13.0-6 9.0 normal Not Available [facility] [address] [facility], [place], [address], 02/11/2024 17:07:08 02/11/20 24 02/11/2024 CMP (FEMA LE) A/G ratio 1.2 ratio Not Available [facility] [address] [facility] 1, [place], [address], 02/11/2024 17:07:08 02/11/20 24 02/11/2024 CMP (FEMA LE) ALP phos 80.0 U/L 30.0-1 40.0 normal Not Available [facility] [address] [facility], [place], [address], 02/11/2024 17:07:08 02/11/20 24 02/11/2024 CMP (FEMA LE) calcium 9.9 mg/dL 8.4-10 .5 Not Available [facility] [address] [facility] 1, [place], [address], 02/11/2024 17:07:08 02/11/2002/11/2024 CMP (FEMA LE) sodium 140.0 mmol/ L 136.0- 145.0 Not Available [facility] [address] [facility] 1, [place], [address], 02/11/2024 17:07:08 02/11/2002/11/2024 CMP (FEMA LE) potassium 4.2 mmol/ L 3.5-5. 1 Not Available [facility] [address] [facility] 1, [place], [address], 02/11/2024 17:07:08 02/11/20 24 02/11/2024 CMP (FEMA LE) chloride 102.0 mmol/ L 98.0-1 10.0 normal Not Available [facility] [address] [facility] 1, [place], [address], 02/11/2024 17:07:08 02/11/2002/11/2024 CMP (FEMA LE) C02 30.0 mmol/ L 22.0-3 1.0 Not Available [facility] [address] [facility] 1, [place], [address], 02/11/2024 17:07:08 02/11/2002/11/2024 CMP (FEMA LE) anion gap 8.0 calc Not Available [facility] [address] [facility] [address], [place], [address], 02/11/2024 17:07:08 02/11/2002/11/2024 CMP (FEMA LE) osmolality 289.2 calc Not Available [facility] [address] [facility] 1, [place], [address], 02/11/2024 17:07:08 02/11/20 24 02/11/2024 TSH TSH 2.11 uIU/m L 0.49-3 .82 Not Available [facility] [address] [facility] 1, [place], [address], 02/11/2024 17:32:16 06/11/19 25 06/10/2024 CBC WBC 5.0 x10 4.0-10 .5 Not Available [facility] [address] [facility] 1, [place], [address], 06/10/2024 15:42:45 06/11/19 25 06/10/2024 CBC RBC 4.63 x10 3.50-5 .50 Not Available [facility] [address] [facility] 1, [place], [address], 06/10/2024 15:42:45 06/11/19 25 06/10/2024 CBC HGB 13.3 g/dL 12.0-1 6.0 Not Available [facility] [address] [facility] 1, [place], [address], 06/10/2024 15:42:45 06/11/19 25 06/10/2024 CBC HCT 39.9 % 37.0-4 7.0 Not Available [facility] [address] [facility] 1, [place], [address], 06/10/2024 15:42:45 06/11/19 25 06/10/2024 CBC MCV 86.1 fL 80.0-9 9.9 Not Available [facility] [address] [facility] [address], [place], [address], 06/10/2024 15:42:45 06/11/19 25 06/10/2024 CBC MCH 28.7 pg 27.0-3 2.0 Not Available [facility] [address] [facility] [address], [place], [address], 06/10/2024 15:42:45 06/11/19 25 06/10/2024 CBC MCHC 33.3 g/dL 32.0-3 6.0 Not Available [facility] [address] [facility] [address], [place], [address], 06/10/2024 15:42:45 06/11/19 25 06/10/2024 CBC RDW 13.8 % 11.5-1 4.5 Not Available [facility] [address] [facility] [address], [place], [address], 06/10/2024 15:42:45 06/11/19 25 06/10/2024 CBC plt 200.0 x10 140.0- 451.0 Not Available [facility] [address] [facility] [address], [place], [address], 06/10/2024 15:42:45 06/11/19 25 06/10/2024 CBC lymphocytes % 31.0 % 20.0-5 0.0 Not Available [facility] [address] [facility] [address], [place], [address], 06/10/2024 15:42:45 06/11/19 25 06/10/2024 CBC granulcytes % 53.0 % 30.0-7 0.0 Not Available [facility] [address] [facility] [address], [place], [address], 06/10/2024 15:42:45 06/11/19 25 06/10/2024 CBC monocytes % 13.3 % 2.0-16 .0 Not Available [facility] [address] [facility] [address], [place], [address], 06/10/2024 15:42:45 06/11/19 25 06/10/2024 CBC granulcytes# 2.7 x10 Not Chiara il[facility] [address] [facility] [address], [place], [address], 06/10/2024 15:42:45 06/11/19 25 06/10/2024 CBC lymphocytes # 1.6 x10 Not Available [facility] [address] [facility] [address], [place], [address], 06/10/2024 15:42:45 06/11/19 25 06/10/2024 CBC monocytes # 0.7 x10 Not Avai lable [facility] [address] [facility] [address], [place], [address], 06/10/2024 15:42:45 06/11/19 25 06/10/2024 CMP (FEMA LE) glucose 107.0 mg/dL 60.0-9 9.0 high Not Available [facility] [address] [address], [place], [address], 06/10/2024 16:07:13 06/11/19 25 06/10/2024 CMP (FEMA LE) BUN (blood urea nitrogen) 14.0 mg/dL 10.0-2 6.0 Not Available [facility] [address] [address], [place], [address], 06/10/2024 16:07:13 06/11/19 25 06/10/2024 CMP (FEMA LE) creatinine (serum) 0.7 mg/dL 0.4-1. 5 Not Available [facility] [address] [address], [place], [address], 06/10/2024 16:07:13 06/11/19 25 06/10/2024 CMP (FEMA LE) BUN/creatini ne ratio 20.00 ratio Not Available [facility] [address] [address], [place], [address], 06/10/2024 16:07:13 06/11/19 25 06/10/2024 CMP (FEMA LE) eGFR calculated 92.7 Not Available [facility] [address] [facility], [place], [address], 06/10/2024 16:07:13 06/11/19 25 06/10/2024 CMP (FEMA LE) total protein 8.3 g/dL 6.0-8. 5 Not Available [facility] [address] [facility], [place], [address], 06/10/2024 16:07:13 06/11/19 25 06/10/2024 CMP (FEMA LE) total bilirubin 0.4 mg/dL 0.2-1. 3 Not Available [facility] [address] [facility], [place], [address], 06/10/2024 16:07:13 06/11/19 25 06/10/2024 CMP (FEMA LE) albumin 4.5 g/dL 3.5-5. 5 Not Available [facility] [address] [facility], [place], [address], 06/10/2024 16:07:13 06/11/19 25 06/10/2024 CMP (FEMA LE) globulin 3.8 calc Not Available [facility] [address] [facility] [address], [place], [address], 06/10/2024 16:07:13 06/11/19 25 06/10/2024 CMP (FEMA LE) AST (SGOT) 26.0 U/L 0.0-46 .0 Not Available [facility] [address] [facility], [place], [address], 06/10/2024 16:07:13 06/11/19 25 06/10/2024 CMP (FEMA LE) altv (SGPT) 30.0 U/L 13.0-6 9.0 normal Not Available [facility] [address] [facility], [place], [address], 06/10/2024 16:07:13 06/11/19 25 06/10/2024 CMP (FEMA LE) A/G ratio 1.2 ratio Not Available [facility] [address] [facility] [address], [place], [address], 06/10/2024 16:07:13 06/11/19 25 06/10/2024 CMP (FEMA LE) ALP phos 79.0 U/L 30.0-1 40.0 normal Not Available [facility] [address] [place] [facility], [place], [address], 06/10/2024 16:07:13 06/11/19 25 06/10/2024 CMP (FEMA LE) calcium 9.6 mg/dL 8.4-10 .5 Not Available [facility] [address] [place] [facility], [place], [address], 06/10/2024 16:07:13 06/11/19 25 06/10/2024 CMP (FEMA LE) sodium 138.0 mmol/ L 136.0- 145.0 Not Available [facility] [address] [facility] [address], [place], [address], 06/10/2024 16:07:13 06/11/19 25 06/10/2024 CMP (FEMA LE) potassium 3.9 mmol/ L 3.5-5. 1 Not Available [facility] [address] [place] [facility], [place], [address], 06/10/2024 16:07:13 06/11/19 25 06/10/2024 CMP (FEMA LE) chloride 102.0 mmol/ L 98.0-1 10.0 normal Not Available [facility] [address], [place], [address], 06/10/2024 16:07:13 06/11/19 25 06/10/2024 CMP (FEMA LE) C02 28.0 mmol/ L 22.0-3 1.0 Not Available [facility] [address], [place], [address], 06/10/2024 16:07:13 06/11/19 25 06/10/2024 CMP (FEMA LE) anion gap 8.0 calc Not Available [facility] [address], [place], [address], 06/10/2024 16:07:13 06/11/19 25 06/10/2024 CMP (FEMA LE) osmolality 286.0 calc Not Available [facility] [address] Rad[address] [facility], [place], [address], 06/10/2024 16:07:13 06/11/19 25 06/10/2024 HBA1C hemaglobin A1C 5.9 4.2-6. 5 Not Available [facility] [address] [facility], [place], [address], 06/10/2024 16:40:45 06/11/19 25 06/11/2024 ALBUM IN, RANDPema M URINE W/CRE ATINI NE creatinine, random urine 194 mg/dL 20-275 normal Not Available [facility] [address] [place], [address], 06/11/2024 12:00:38 06/11/19 25 06/11/2024 ALBUM IN, RANDO M URINE W/CRE ATINI NE albumin, urine 2.2 mg/dL see note: normal Refer ence Range : Refer ence Range Not estab lishe d Not Available [facility] [address] [place], [address], 06/11/2024 12:00:38 06/11/19 25 06/11/2024 ALBUM IN, RANDO M URINE W/CRE ATINI NE albumin/crea tinine ratio, random urine 11 mg/g_ creat <30 normal The ADA defin es abnor malit ies in album in excre tion as follo ws: Album inuri a Categ ory Resul t (mg/g creat inine ) Cindy l to Mildl y incre ased <30 Moder ately incre ased 30-29 9 Sever bony incre ased > OR = 300 The ADA recom mends that at least two of three speci mens colle cted withi n a 3-6 month perio d be abnor mal befor e consi ruddy g a patie nt to be withi n a diagn ostic categ ory. Not Available [employer] [facility] [address] [place], [address], 06/11/2024 12:00:38 12/11/19 25 12/10/2024 HBA1C hemaglobin A1C 6.0 4.2-6. 5 Not Available [facility] [address] [facility] [address], [place], [address], 12/10/2024 15:32:35 12/11/19 25 12/10/2024 BMP (FEMA LE) glucose 158.0 mg/dL 60.0-9 9.0 high Not Available [facility] [address] [facility] [address], [place], [address], 12/10/2024 16:07:51 12/11/19 25 12/10/2024 BMP (FEMA LE) BUN (blood urea nitrogen) 13.0 mg/dL 10.0-2 6.0 Not Available [facility] [address] [facility] [address], [place], [address], 12/10/2024 16:07:51 12/11/19 25 12/10/2024 BMP (FEMA LE) creatinine (serum) 0.6 mg/dL 0.4-1. 5 Not Available [facility] [address] [facility] 1, [place], [address], 12/10/2024 16:07:51 12/11/19 25 12/10/2024 BMP (FEMA LE) BUN/creatini ne ratio 21.67 ratio Not Available [facility] [address] [facility], [place], [address], 12/10/2024 16:07:51 12/11/19 25 12/10/2024 BMP (FEMA LE) calcium 9.5 mg/dL 8.4-10 .5 Not Available [facility] [address] [facility], [place], [address], 12/10/2024 16:07:51 12/11/19 25 12/10/2024 BMP (FEMA LE) sodium 139.0 mmol/ L 136.0- 145.0 Not Available [facility] [address] [facility] 1, [place], [address], 12/10/2024 16:07:51 12/11/1912/10/2024 BMP (FEMA LE) potassium 4.2 mmol/ L 3.5-5. 1 Not Available [facility] [address] [facility] 1, [place], [address], 12/10/2024 16:07:51 12/11/19 25 12/10/2024 BMP (FEMA LE) chloride 105.0 mmol/ L 98.0-1 10.0 normal Not Available [facility] [address] [facility] 1, [place], [address], 12/10/2024 16:07:51 12/11/19 25 12/10/2024 BMP (FEMA LE) C02 25.0 mmol/ L 22.0-3 1.0 Not Available [facility] [address] [facility] 1, [place], [address], 12/10/2024 16:07:51 12/11/19 25 12/10/2024 BMP (FEMA LE) anion gap 9.0 calc Not Available [facility] [address] [facility] [address], [place], [address], 12/10/2024 16:07:51 11/08/19 24 11/07/2023 XR, shoul maty, 2 or more view No observ ation record ed. [address] [facility], [place], [address], 11/08/2023 14:37:39 06/12/19 25 06/10/2024 XR, wrist , 3 or more view No observ ation record ed. [address] [place], [address], 06/11/2024 16:50:35 Result Notes None recorded. Problems Name Problem SNOMED Code Status Onset Date Resolution Date Notes Provider Name and Address Organization Details Recorded Time Hypertensi ve disorder 02009064 Active 2022 HYPERTENSI ON LORI ISABELLE [facility] 5 20:25:35 Migraine 38398030 Active 2022 MIGRAINE LORI WALTON [facility] 5 20:25:43 Type 2 diabetes mellitus without complicati on 403194714 Active 2022 DIABETES MELLITUS LORI WALTON [facility] 5 20:26:23 Hyperlipid emia 92939706 Active 2022 HYPERLIPEM IA LORI WALTON [facility] 5 20:25:33 Allergic asthma 181963769 Active 2022 LORI WALTON [facility], LKennyL[facility]enny[facility]enny 5 20:25:24 Hypothyroi dism 15491280 Active 2023 LORILuis Felipe WALTON [facility], LKennyL[facility]ennyCKenny 20:25:38 Problem Notes None recorded. Procedures Surgical History Date Name Laterality Status Provider Name and Address Organization Details Recorded Time 12/11/19 25 Trigger Point Injection, 1-2 Muscle(s)/Region (s) completed REKHA KRUSE PA-C [address] [place] [address], [id number], [facility], LKennyLKennyCKenny 12/10/2024 15:13:20 11/21/19 24 screening for malignant neoplasm of colon completed LORI WALTON [facility] 11/27/2023 12:41:04 03/25/19 06 hysterectomy completed [facility] 07/09/2023 15:45:59 03/25/19 05 Shoulder joint surgery completed [facility] 07/09/2023 15:45:18 03/25/19 04 delivery completed [facility] 07/09/2023 15:46:16 03/25/18 91 Knee arthroscopy/surg guillaume completed [facility] 07/09/2023 15:45:43 Imaging Results None recorded. Procedure Notes None recorded. Medical Equipment None Reported. Allergies Allergen ID Allergen Name Allergen Category Reaction Reaction Severity Criticality Documentation Date Start Date Code Code System Note Provider Name and Address Organization Details Recorded Time 02406 phenazopy ridine hydrochlo ride medicatio n other moderate low 10/20/202266240 7 RxNorm React ion: noseb arnulfo Tapia tomy [facility], LKennyL[facility]enny[facility]enny 4 14:33:40 Medications Name Sig Start Date Stop Date Status Note LastModified by Organization Details LastModified Time Prescript ion - Renewal active Not Available Not Available Not Available Prescript ion - Prior Authoriza tion Request active Not Available Not Available Not Available amoxicill in 500 mg capsule TAKE 2 CAPSULES BY MOUTH EVERY 12 HOURS FOR 7 DAYS. 07/07 completed Not Available Not Available Not Available Toprol XL 50 mg tablet,ex tended release daily 11/06 completed 44197; Recorded 05/22/19 23 4:45PM by Lori Walton LPN (Authori kristian through Rekha Kruse PA-C), Refill Request; Refill Quantity : 0; Not Available Not Available Not Available metformin 500 mg tablet TAKE 1 TABLET BY MOUTH TWICE A DAY 11/06 completed Not Available Not Available Not Available albuterol sulfate 2.5 mg/3 mL (0.083 %) solution for nebulizat ion USE ONE VIAL VIA NEBULIZE R FOUR TIMES DAILY NEEDED. active Not Available Not Available No t Available oxybutyni n chloride ER 10 mg tablet,ex tended release 24 hr TAKE 1 TABLET BY MOUTH EVERY DAY FOR 30 DAYS active Not Available Not Available No t Available metoprolo l succinate ER 50 mg tablet,ex tended release 24 hr TAKE 1 TABLET BY MOUTH EVERY DAY active Not Available Not Available No t Available albuterol sulfate 1.25 mg/3 mL solution for nebulizat ion INHALE THE CONTENTS OF 1 VIAL VIA NEBULIZE R EVERY 6 HOURS NEEDED FOR 15 DAYS 11/06 completed Not Available Not Available Not Available hydrocodo ne 5 mg-acetam inophen 325 mg tablet TAKE 1/2 TABLET BY MOUTH EVERY 8 HOURS NEEDED, MAX 1 AND 1/2 TABLETS PER DAY 07/09 completed Not Available Not Available Not Available sumatript an 50 mg tablet TAKE 1 TABLET BY MOUTH EVERY DAY NEEDED FOR MIGRAINE active Not Available Not Available No t Available penicilli n V potassium 500 mg tablet TAKE 1 TABLET BY MOUTH EVERY 8 HOURS 09/26 completed Not Available Not Available Not Available lovastati n 10 mg tablet TAKE 1 TABLET BY MOUTH EVERY DAY active Not Available Not Available No t Available amoxicill in 500 mg tablet Take 2 tablets every 12 hours by oral route for 7 days. 07/07 completed Not Available Not Available Not Available acyclovir 800 mg tablet TAKE 1 TABLET 5 TIMES A DAY BY ORAL ROUTE WITH MEAL(S) FOR 7 DAYS. 02/10 completed Not Available Not Available Not Available levothyro xine 75 mcg tablet TAKE 1 TABLET BY MOUTH EVERY DAY active Not Available Not Available No t Available amoxicill in 875 mg tablet TAKE 1 TABLET BY MOUTH EVERY 12 HOURS FOR 7 DAYS 07/28 completed Not Available Not Available Not Available dicyclomi ne 20 mg tablet TAKE 1 TABLET BY MOUTH 3 TIMES A DAY 30 MINUTES BEFORE MEALS NEEDED active Not Available Not Available No t Available triamcino lone acetonide 40 mg/mL suspensio n for injection Take 20 mg by injectio n route for 1 day. 2024 active Not Available Not Available Not Avai lable levothyro xine 50 mcg tablet TAKE 1 TABLET BY MOUTH EVERY DAY 06/28 completed Not Available Not Available Not Available hydrocodo ne 7.5 mg-acetam inophen 325 mg tablet TAKE 1 TABLET BY MOUTH EVERY 12 HOURS NEEDED DO NOT EXCEED 2 PER DAY active Not Available Not Available No t Available cephalexi n 500 mg capsule TAKE 1 CAPSULE BY MOUTH THREE TIMES DAILY 10/07 completed Not Available Not Available Not Available hydrocort isone-pra moxine 2.5 %- 1 % topical ointment two times daily 11/06 completed Recorded 05/02/19 23 10:30AM by Lori Walton LPN, Annotibrahima on/Prema dum; Refill Quantity : 0; Not Available Not Available Not Available mupirocin 2 % topical ointment APPLY TOPICALL Y TWICE A DAY 10/24 completed Not Available Not Available Not Available loratadin e 10 mg tablet TAKE 1 TABLET BY MOUTH EVERY DAY active Not Available Not Available No t Available naproxen 500 mg tablet TAKE 1 TABLET BY MOUTH EVERY DAY 2024 active Not Available Not Available Not Avai lable Ventolin HFA 90 mcg/actua tion aerosol inhaler TAKE 2 PUFFS BY MOUTH EVERY 4 HOURS NEEDED active Not Available Not Available No t Available duloxetin e 60 mg capsule,d elayed release TAKE 1 CAPSULE BY MOUTH EVERY DAY 2024 active Not Available Not Available Not Avai lable Eckerman three times daily 11/[address] Whitley; 0; Recorded 05/08/19 3:16PM by Rekha Kruse PA-C, Office Visit; Not Available Not Available Not Available loratadin e daily 11/06 completed vo KM/dh J45.909; Recorded 05/02/19 10:30AM by Lori Walton LPN, Annotibrahima on/Adden dum; Refill Quantity : 90; Tablet; Not Available Not Available Not Available dicyclomi ne three times daily 30 min AC prn 11/06 completed vo KM/dh; 40187; Recorded 06/07/19 7:30PM by Lori Walton LPN (Authori zed through Rekha Kruse PA-C), Refill Request; Refill Quantity : 90; Tablet; Not Available Not Available Not Available naproxen daily 11/06 completed vo KM/dh; Recorded 05/02/19 10:30AM by Lori Walton LPN, Annotati on/Adden dum; Refill Quantity : 30; Tablet; Not Available Not Available Not Available sumatript an succinate as needed 11/06 completed vo KM/dh; Recorded 05/02/19 10:30AM by Lori Walton LPN, Annotati on/Adden dum; Refill Quantity : 10; Tablet; Not Available Not Available Not Available THOR Levothyro xine Sodium daily 11/06 completed vo KM/dh; Recorded 05/09/19 11:46AM by Lori Walton LPN, Lab Only; Refill Quantity : 30; Tablet; Not Available Not Available Not Available Cymbalta daily 11/[address] Richar londono orPT MUST BE SEEN FOR MORE KM/DH vo KM/; 23582; Recorded 04/05/19 2:55PM by Lori Walton LPN (Authori memod through Rekha Kruse PA-C), Annotati on/Adden dum; Refill Quantity : 0; Not Available Not Available Not Available Symbicort 160 mcg-4.5 mcg/actua tion HFA aerosol inhaler INHALE 2 PUFFS INTO THE LUNGS TWICE A DAY DIRECTED FOR 30 DAYS 2024 active Not Available Not Available Not Avai lable Victoza 0.6 mg/0.1 mL (18 mg/3 mL) subcutane ous pen injector daily 08/24 completed DUPLICAT E MEDICATI ON ON CHART Not Available Not Available Not Available Victoza 3-Anthony 0.6 mg/0.1 mL (18 mg/3 mL) subcutane ous pen injector INJECT 1.2MG DAILY 11/06 completed Not Available Not Available Not Available True Metrix Glucose Test Strip TAKE 1 STRIP EVERY DAY FOR 30 DAYS. active Not Available Not Available No t Available Trulicity 1.5 mg/0.5 mL subcutane ous pen injector INJECT 1.5 MG SUBCUTAN EOUSLY ONE TIME PER WEEK 06/10 completed Not Available Not Available Not Available Trulicity 0.75 mg/0.5 mL subcutane ous pen injector INJECT 0.75 MG SUBCUTAN EOUSLY EVERY WEEK DIRECTED FOR 30 DAYS 02/10 completed Not Available Not Available Not Available Narcan 4 mg/actuat ion nasal spray ADMINIST ER 1 SPRAY INTO ONE NOSTRIL. CALL 911. REPEAT AFTER 2-3 MIN IF NO OR MINIMAL RESPONSE active Not Available Not Available No t Available TechLITE Pen Needle 31 gauge x 5/16 USE 1 STICK DAILY, PT MUST BE SEEN FOR MORE active Not Available Not Available No t Available Ozempic 0.25 mg or 0.5 mg (2 mg/1.5 mL) subcutane ous pen injector Inject 0.5 mg every week by subcutan eous route. 07/05 completed Not Available Not Available Not Available Ozempic weekly 11/06 completed Recorded 05/08/19 23 3:24PM by Rekha Kruse PA-C, Office Visit; Refill Quantity : 1; Applicat or; Not Available Not Available Not Available TechLITE Insulin Syringe 1 mL 30 gauge x 5/16 daily 08/24 completed DUPLICAT E MEDICATI ON ON CHART Not Available Not Available Not Available Aimovig Autoinjec tor 140 mg/mL subcutane ous auto-inje ctor Inject 1 mL every month by subcutan eous route for 30 days. 02/10 completed Not Available Not Available Not Available Trulicity 3 mg/0.5 mL subcutane ous pen injector INJECT 3 MG SUBCUTAN EOUSLY WEEKLY 12/10 completed Not Available Not Available Not Available Ozempic 1 mg/dose (4 mg/3 mL) subcutane ous pen injector INJECT 1 MG SUBCUTAN EOUSLY EVERY WEEK FOR 28 DAYS. active Not Available Not Available No t Available Ozempic 0.25 mg or 0.5 mg (2 mg/3 mL) subcutane ous pen injector Inject 0.25 mg every week by subcutan eous route for 30 days. 12/08 completed Not Available Not Available Not Available Vitals Date Recorded Body height Body mass index (BMI) Body weight Oxygen saturation Heart rate Respiratory rate Body temperature Systolic And Diastolic Provider Name and Address Organization Details Last Updated DateTime 5 160.02 cm 51.9 kg/m2 593085. 56 g 98 % 88 /min 18 /min 98 [degF] 142/80 mm[Hg] [facility] 5 13:54:16 Date Recorded Body height Body mass index (BMI) Body weight Oxygen saturation Heart rate Respiratory rate Body temperature Systolic And Diastolic Provider Name and Address Organization Details Last Updated DateTime 4 160.02 cm 54.2 kg/m2 673321. 27 g 97 % 78 /min 20 /min 97.9 [degF] 140/80 mm[Hg] [facility] 4 15:26:45 Date Recorded Body height Body mass index (BMI) Body weight Oxygen saturation Heart rate Respiratory rate Body temperature Systolic And Diastolic Provider Name and Address Organization Details Last Updated DateTime 4 160.02 cm 52.1 kg/m2 524294. 16 g 98 % 84 /min 18 /min 97.9 [degF] 116/74 mm[Hg] Terese Leo [facility] L[facility] 4 13:32:01 Date Recorded Body height Body mass index (BMI) Body weight Oxygen saturation Heart rate Respiratory rate Body temperature Systolic And Diastolic Provider Name and Address Organization Details Last Updated DateTime 5 160.02 cm 53 kg/m2 027136. 12 g 98 % 80 /min 18 /min 98.6 [degF] 146/80 mm[Hg] LORI KATELINMIL [facility] L[facility] 5 14:27:27 Date Recorded Body height Body mass index (BMI) Body weight Oxygen saturation Heart rate Respiratory rate Body temperature Systolic And Diastolic Provider Name and Address Organization Details Last Updated DateTime 4 160.02 cm 52.1 kg/m2 603218. 16 g 97 % 84 /min 20 /min 97 [degF] 140/80 mm[Hg] [facility] 4 15:27:46 Social History Question Answer Notes LastModified by Story[employer] Details LastModified Time Tobacco Smoking Status Never Smoker Terese Leo [facility] 07/09/2023 15:44:51 What Is Your Level Of Caffeine Consumption? Occasional Information not available 07/09/2023 How Many Times In The Past Year Have You Used An Illegal Drug Or Used A Prescription Medication For Nonmedical Reasons? 0 Information not available 07/09/2023 What Was The Date Of Your Most Recent Tobacco Screening? 06/10/2024 [email or web address] Information not available 06/10/2024 Has Tobacco Cessation Counseling Been Provided? No Information not available 07/09/2023 Sex: Unknown Functional Status Question Answer Note LastModified by [employer] Details LastModified Time Do you use any illicit or recreational drugs? No Information not available 07/09/2023 Do you or have you ever used any other forms of tobacco or nicotine? No Information not available 07/09/2023 What is your level of alcohol consumption? None Information not available 07/09/2023 Do you or have you ever used any nicotine-free cigarettes, vape, or chewing tobacco? No [email or web address] Information not available 06/10/2024 Mental Status None recorded. Family History Nothing Reported. Medical History No medical history recorded. Gynecological HistoryNo gynecological history recorded. Obstetrics History GPAL:G 0 P 0 0 0 0 Immunizations Vaccine Type Date Status Note Provider Nam e and Address Organization Details Recorded Time COVID-19 vaccine, vector-nr, rS-Ad26, PF, 0.5 mL 1 completed Not Available Replaced by [facility] 10/20/2022 02:39:00 zoster recombinant 5 completed Not Available Replaced by [facility] 12/10/2024 14:20:09 zoster recombinant 5 completed Not Available Replaced by [facility] 12/10/2024 14:20:09 Past Encounters Encounter ID Performer Location Encounter Start Date Encounter Closed Date Diagnosis/Indication Diagnosis SNOMED-CT Code Diagnosis ICD10 Code Diagnosis IMO Codes Diagnosis Note [id number] REKHA KRUSE PA-C [facility] ([facility]) [address] [place] [phone] 06/28/2022 10:52:05 07/06/2022 17:15:19 Pain of left shoulder joint 7930569359 7220482 M25.512 failure of conservati ve care Moderate p ersistent asthma 880306052 J45.40 FACE to FACE for nebulizer machine and tubing. Diabetes mellitus 214916 09 E11.9 [id number] REKHA KRUSE PA-C [facility] ([facility]) [address] [place] [address] 11/06/2022 14:51:47 11/06/2022 19:27:22 Infection of tooth 236550890 K04.7 Allergic rhinitis 394522 04 J30.9 Hypothyroidism 10832491 E03.9 [id number] SANDRA VIDAL [facility] ([facility]) [address] [place] [address] 07/09/2023 15:35:50 07/09/2023 17:10:35 Infection of tooth 856904694 K04.7 Discussed use of antibiotic for full course. May take tylenol/mo taty for discomfort .Call dentist today to schedule f/u appt.F/u sooner if you develop difficulty swallowing , fever, increased swelling. [id number] REKHA KRUSE PA-C [facility] ([facility]) [address] [place] [phone] 11/07/2023 14:57:25 11/08/2023 09:28:14 Diabetes mellitus 91059364 E11.9 Migraine 34429256 G43.90 9 Essential hypertension 55109955 I10 Hypothyroidism 09588165 E03.9 Chronic low back pain 27 0408650 M54.50 Allergic asthma 28849632 6 J45.909 Moderate p ersistent asthma 965109708 J45.40 Screening for malignant neoplasm of breast 033072953 Z12.39 Screening for malignant neoplasm of colon 984910313 Z12.11 Hearing lo ss of left ear 686318502 H91.92 Pain of ri ght shoulder joint 7862319170 [id number] M25.618 [id number] DARLINE SANTIAGO APRN [facility] ([facility]) [address] [place] [address] 5 12/09/2023 13:24:10 12/13/2023 07:20:40 Herpes zoster [id number] B02.9 [id number] REKHA KRUSE PA-C [facility] ([facility]) [address] [place] [address]820 5 02/11/2024 14:53:54 02/11/2024 16:33:50 Diabetes mellitus 97595930 E11.9 Allergic asthma [id number] 6 J45.909 Hypothyroidism 80844628 E03.9 Overactive urinary bladder 612128901 N32.81 [id number] REKHA KRUSE PA-C [facility] ([facility]) [address] [place] [address]094 5 06/10/2024 13:35:10 06/10/2024 14:30:32 Diabetes mellitus 47992145 E11.9 Administra tion of viral vaccine 77770796 Z23 Pain of left wrist 59417 11406 99269 M25.532 Screening for malignant neoplasm of breast 549590780 Z12.39 [id number] REKHA KRUSE PA-C [facility] ([facility]) [address] [place] [address] 12/10/2024 14:19:40 12/10/2024 15:20:36 Type 2 diabetes mellitus without complication 084896147 E11.9 stop trulicity once current rx gone. start ozempic 1 mg weekly. Bilateral carpal tunnel syndrome [id number] 6920504 G56.03 662532 Triggering of digit 2399 67060 M65.608 [id number] Health Concerns Section Related Observation LastModified by Organization Detai ls LastModified Time None Recorded Concern Status LastModified by Organization Details LastModified Time None Recorded Advance Directives Directive None Recorded Payers Insurance Date Sequence Insurance Name Policy Number Policy Otto Covered Member ID Otto Member ID Guarantor Name 02/06/2025 [place] [facility] Shruti Edward Duran [id number] Shruti Duran 02/06/2025 1 [place] Shruti Edward Duarn [id number] Shruti Duran Notes Date Note Type Note Provider Name and Address Organization Details Recorded Time 4 text/html Annual WellnessReported by PatientSocial/Behavioral HistoryFor fracture risk, patient reportsprevious musculoskeletal injuriesbut reportsno recent explained fractureandno sudden unexplained fractures. For diet and nutrition, patient reportshealthy diet,discussed vitamin and supplement use,discussed portion control,discussed maintaining calcium balance, anddiscussed diet improvement. For physical activity, patient reportsdiscussed weightbearing activitiesanddiscussed exercise habits. For additional lifestyle factors, patient reportsno tobacco use,no alcohol intake, andstopped drinking alcohol.Mental Status:For depression risk, patient reportsnever feels sad, empty, or tearful,no loss of interest in activities,no significant changes in weight,no sleep disturbances or insomnia,no agitation,no loss of energy,no feelings of worthlessness or guilt,no thoughts of suicide,no history of depression, andno history of mood disorders.Functional AbilityFor hearing, patient reportsno loss of hearing. For vision, patient reportsno vision problems. Musculoskeletal PainReported by PatientHPIFor quality, patient reportssharp,tingling, anddull. For severity, patient reportsworsening,interferes with sleep, andinterferes with work/school. For associated symptoms, patient reportsweak limbs. For location, patient reportsright shoulder. For duration, patient reportspresent <1 month. For timing, patient reportsconstant. For alleviating factors, patient reportschanging position. For aggravating factors, patient reportsmovement/positioning . For adls affected, patient reportssweeping,mopping,bat darren,dressing, andeating. I probably need labs done. its been a while. I stopped the trulicity because it quit working I am at loss now didnt lose much weight. I need a mammogram. REKHA KRUSE PA-C [address] [place], [address], [facility], Shailesh. 11/15/2023 16:45:48 4 text/html ROS as noted in the HPI walk in: Says that she thinks that she has shingles on her breasts. Says that they do not itch but she does have the blisters and the pain. Says that this has started 7-8 days ago. Still breaking out in blisters PCP: Aby SANTIAGO, MAIRA [address] [place], [address], [facility], Sathya 12/12/2023 21:06:10 4 text/html General Rash/Skin LesionReported by PatientHPIFor quality, patient reportsitchy,painful, andmultiple. For associated symptoms, patient reportsobesitybut reportsno fever,no cold symptoms,no nausea, andno vomiting. For location, patient reportschest. For severity, patient reportsmoderate. For duration, patient reportshas noted for 1-2months. For onset/timing, patient reportsgradual onset. For context, patient reportsno new detergents or skin productsandno one else with similar rash. Musculoskeletal PainReported by PatientHPIFor quality, patient reportssharp,tingling, anddull. For severity, patient reportsworsening,interferes with sleep, andinterferes with work/school. For location, patient reportsright shoulder. For duration, patient reportspresent for 6-12 months. For timing, patient reportsconstant. For alleviating factors, patient reportsrestandchanging position. For aggravating factors, patient reportsmovement/positioning ,bending over, andtwisting. For adls affected, patient reportssweeping,mopping,bat darren,dressing, andeating. I had shingles last month on my left breast and shoulder. Can I get a shingles shot or go to the pharmacy. REKHA KRUSE PA-C [address] [place], [address], [facility], [facility] 02/11/2024 16:09:38 5 text/html HypertensionReported by PatientHPIFor quality, patient reportspressureandweakness. For context, patient reportsexertion. For associated symptoms, patient reportsshortness of breathandfatigue. For severity, patient reportsgrade 1 (130-139/80-89). For duration, patient reportshas noted for years. For onset/timing, patient reportsgradual onset. For alleviating factors, patient reportsmedication. For self care, patient reportsblood pressure goal: 120/70. Care Management - DiabetesReported by PatientHPIFor self care, patient reportsnot seeing eye doctor yearly for dilated eye exambut reportsno side effects from medications,frequency of blood glucose monitoring: little or no monitoring since last visit, andhemoglobin a1c levels have been: <7. For associated symptoms, patient reportssymptoms are usually well controlled,no fatigue,no dizziness,no confusion,no increased thirst,no increased appetite, andno increased urination. I need a rx for the shingles shot sent to pharm. I also need to get in with a dentist. REKHA KRUSE PA-C [address] [place], [address], [facility], [facility] 06/10/2024 14:18:51 5 text/html Musculoskeletal PainReported by PatientHPIFor quality, patient reportssharp,tingling, anddull. For severity, patient reportsworsening,interferes with sleep, andinterferes with work/school. For associated symptoms, patient reportsweak limbsandtingling. For location, patient reportsbilateral neck,right hand, andright third finger. For duration, patient reportspresent for 1-6 months. For timing, patient reportsconstant,pain at night, andgradual. For alleviating factors, patient reportschanging position. For aggravating factors, patient reportsmovement/positioning ,bending over, andtwisting. For adls affected, patient reportswalking,sweeping,mop ping,bathing,dressing,eatin g, andclimbing stairs. Care Management - DiabetesReported by PatientHPIFor associated symptoms, patient reportsexcessive sweatingbut reportssymptoms are usually well controlled,no headaches,no confusion,no blurred vision, andno numbness of feet. For prognosis, patient reportsexpected outcome: improveandprognosis: good. For self care, patient reportshemoglobin a1c goal: <6.5andhemoglobin a1c levels have been: <7.stable on trulicity but would like more wt loss. Will switch GLP 1 agents. months of bilat hand numbness equally. Fingers 1-4. likes to play on tablet and mary as well. has neck pain as welltrigger finger 3rd right hand for 1 months. pops back and forth REKHA KRUSE PA-C [address] [place] [address], [phone], [facility] - [facility] 12/10/2024 15:15:56 OBGyn Episode No OBEpisode recorded.
--- OUTSIDE RECORDS SUMMARY | 2025-03-09 18:11 | XMS_ITS | Continuity of Care Document ---
Author Organization [facility], Sathya, [facility] ([facility]) Address [address] [place] [address] Care Team Providers Care Lining Caser Name Role Phone CLARI REKHA Primary Care Provider Unavailabl e Assessment No assessment recorded. Plan of Treatment Reminders Order Date Submit Date Provider Last Modified By Organization Details Last Modified Time Details Appointments None recorded. Lab HbA1c (hemoglobin A1c), blood 2024 025 [email or web address] 1 [facility], [address] [facility] [address], [place], [address], 5 12:28:13 BMP, serum or plasma 2024 025 [facility], [address] [facility], [facility], [place], [address], 5 16:07:51 Referral None recorded. Procedures tendon sheath injection (PROC) 2024 025 [place] [id number] 2 [facility], [address] [facility] [address], [place], [address], 5 15:18:25 Surgeries None recorded. Imaging nerve conduction study [address] [facility], [address] [place], [address], 16:52:00 Medication Orders triamcinolo ne acetonide 40 mg/mL suspension for injection 2024 025 dhaeffner 1 Not available 15:44:49 Ozempic 1 mg/dose (4 mg/3 mL) subcutaneou s pen injector [address] [facility] #[id number], [address], [address], [place], [address], 15:06:09 Patient TargetsNo targets recorded. Patient InstructionsNo instructions recorded. Reason for Referral None Reported. Results Created Date Observation Date Name Description Value Unit Range Abnormal Flag Note LastModifiedBy Organization Detail LastModifiedTime 12/11/1912/10/2024 HBA1C hemaglobin A1C 6.0 4.2-6. 5 Not Available [facility] [address], [place], [address], 12/10/2024 15:32:35 12/11/1912/10/2024 BMP (FEMA LE) glucose 158.0 mg/dL 60.0-9 9.0 high Not Available [facility] [address], [place], [address], 12/10/2024 16:07:51 12/11/1912/10/2024 BMP (FEMA LE) BUN (blood urea nitrogen) 13.0 mg/dL 10.0-2 6.0 Not Available [facility] [address] [facility] [address], [place], [address], 12/10/2024 16:07:51 12/11/1912/10/2024 BMP (FEMA LE) creatinine (serum) 0.6 mg/dL 0.4-1. 5 Not Available [facility] [address], [place], [address], 12/10/2024 16:07:51 12/11/19 25 12/10/2024 BMP (FEMA LE) BUN/creatini ne ratio 21.67 ratio Not Available [facility] [address] [facility], [place], [address], 12/10/2024 16:07:51 12/11/19 25 12/10/2024 BMP (FEMA LE) calcium 9.5 mg/dL 8.4-10 .5 Not Available [facility] [address] [facility], [place], [address], 12/10/2024 16:07:51 12/11/19 25 12/10/2024 BMP (FEMA LE) sodium 139.0 mmol/ L 136.0- 145.0 Not Available [facility] [address] [facility], [place], [address], 12/10/2024 16:07:51 12/11/19 25 12/10/2024 BMP (FEMA LE) potassium 4.2 mmol/ L 3.5-5. 1 Not Available [facility] [address] [facility] [address], [place], [address], 12/10/2024 16:07:51 12/11/19 25 12/10/2024 BMP (FEMA LE) chloride 105.0 mmol/ L 98.0-1 10.0 normal Not Available [facility] [address] [facility] [address], [place], [address], 12/10/2024 16:07:51 12/11/19 25 12/10/2024 BMP (FEMA LE) C02 25.0 mmol/ L 22.0-3 1.0 Not Available [facility] [address] [facility], [place], [address], 12/10/2024 16:07:51 12/11/19 25 12/10/2024 BMP (FEMA LE) anion gap 9.0 calc Not Available [facility] [address], [address], 12/10/2024 16:07:51 Result Notes None recorded. Problems Name Problem SNOMED Code Status Onset Date Resolution Date Notes Provider Name and Address Organization Details Recorded Time Hypertensi ve disorder 68887909 Active 2022 HYPERTENSI ON LORIBRODY ALFAROMIL [facility] 5 20:25:35 Migraine 62587893 Active 2022 MIGRAINE LORI ALEXANDRUANABELLA [facility] 5 20:25:43 Type 2 diabetes mellitus without complicati on 532495016 Active 2022 DIABETES MELLITUS LORI ANGELINAMIL [facility] 5 20:26:23 Hyperlipid emia 45146369 Active 2022 HYPERLIPEM IA LORIBRODY WALTON [facility] 5 20:25:33 Allergic asthma 146219679 Active 2022 LORI WALTON [facility] 5 20:25:24 Hypothyroi dism 10886527 Active 2023 LORI KATELINHUSSEIN [facility] 5 20:25:38 Problem Notes None recorded. Procedures Surgical History Date Name Laterality Status Provider Name and Address Organization Details Recorded Time 12/11/19 25 Trigger Point Injection, 1-2 Muscle(s)/Region (s) completed REKHA MONTAGUE PA-C [address] [place], [address], [facility] 12/10/2024 15:13:20 11/21/19 24 screening for malignant neoplasm of colon completed LORI WALTON [facility] 11/27/2023 12:41:04 03/25/19 06 hysterectomy completed [facility], Sathya 07/09/2023 15:45:59 03/25/19 05 Shoulder joint surgery completed [facility], LAnny 07/09/2023 15:45:18 03/25/19 04 delivery completed [facility], LAnny 07/09/2023 15:46:16 03/25/18 91 Knee arthroscopy/surg guillaume completed [facility], Sathya 07/09/2023 15:45:43 Imaging Results None recorded. Procedure Notes None recorded. Medical Equipment None Reported. Allergies Allergen ID Allergen Name Allergen Category Reaction Reaction Severity Criticality Documentation Date Start Date Code Code System Note Provider Name and Address Organization Details Recorded Time 03314 phenazopy ridine hydrochlo ride medicatio n other moderate low 10/20/2022 7 RxNorm React ion: noseb berthapreston Patydeny Tapia [facility], LKennyLBhavani 14:33:40 Medications Name Sig Start Date Stop [...] mg tablet,ex tended release daily 11/06 completed 42020; Recorded 05/22/19 23 4:45PM by Lori Walton LPN (Authori kristian through Rekha Montague PA-C), Refill Request; Refill Quantity : 0; [...] 05/02/19 23 10:30AM by Lori Walton LPN, Annotati on/Adden dum; Refill Quantity : 0; [...] Not Available Not Available Not Avai lable Climax three times daily 11/[address] Whitley; 0; Recorded 05/08/19 3:16PM by Rekha Montague PA-C, Office Visit; Not Available Not Available Not Available loratadin e daily 11/06 completed vo KM/ J45.909; Recorded 05/02/19 10:30AM by Lori Walton LPN, Annotati on/Adden dum; Refill Quantity : 90; Tablet; Not Available Not Available Not Available dicyclomi ne three times daily 30 min AC prn 11/06 completed vo KM/; 43405; Recorded 06/07/19 7:30PM by Lori Walton LPN (Authori kristian through Rekha Montague PA-C), Refill Request; Refill Quantity : 90; Tablet; Not Available Not Available Not Available naproxen daily 11/06 completed vo KM/dh; Recorded 05/02/19 10:30AM by Lori Walton LPN, Annotibrahima on/Adden dum; Refill Quantity : 30; Tablet; Not Available Not Available Not Available sumatript an succinate as needed 11/06 completed vo KM/dh; Recorded 05/02/19 10:30AM by Lori Walton LPN, Annotibrahima on/Adden dum; Refill Quantity : 10; Tablet; Not Available Not Available Not Available [facility] Levothyro xine Sodium daily 11/06 completed vo KM/dh; Recorded 05/09/19 11:46AM by Lori Walton LPN, Lab Only; Refill Quantity : 30; Tablet; Not Available Not Available Not Available Cymbalta daily 11/[address] Mcqueen supervis orPT MUST BE SEEN FOR MORE KM/DH vo KM/; 37558; Recorded 04/05/19 2:55PM by Lori Walton LPN (Authori kristian through Rekha Montague PA-C), Armand on/Adden dum; Refill Quantity : 0; Not [...] completed Recorded 05/08/19 23 3:24PM by Rekha Montague PA-C, Office Visit; Refill Quantity : 1; [...] Updated DateTime 5 160.02 cm 53 kg/m2 404405. 12 g 98 % 80 /min 18 /min 98.6 [degF] 146/80 mm[Hg] LORI WALTON [facility] 5 14:27:27 Social History Question Answer Notes LastModified by [employer] Details LastModified Time Tobacco Smoking Status Never Smoker Terese huitron [facility] 07/09/2023 15:44:51 What Is Your Level Of Caffeine Consumption? Occasional Information not available 07/09/2023 How Many Times In The Past Year Have You Used An Illegal Drug Or Used A Prescription Medication For Nonmedical Reasons? 0 Information not available 07/09/2023 What Was The Date Of Your Most Recent Tobacco Screening? 06/10/2024 [email or web address] Information not available 06/10/2024 Has Tobacco Cessation Counseling Been Provided? No Information not available 07/09/2023 Sex: Unknown Functional Status Question Answer Note LastModified by [employer] Details LastModified Time Do you use any illicit or recreational drugs? No Information not available 07/09/2023 Do you or have you ever used any other forms of tobacco or nicotine? No Information not available 07/09/2023 What is your level of alcohol consumption? None Information not available 07/09/2023 Do you or have you ever used any nicotine-free cigarettes, vape, or chewing tobacco? No Information not available 06/10/2024 Mental Status None recorded. Family History Nothing Reported. Medical History No medical history recorded. Gynecological HistoryNo gynecological history recorded. Obstetrics History GPAL:G 0 P 0 0 0 0 Immunizations Vaccine Type Date Status Note Provider Nam e and Address Organization Details Recorded Time COVID-19 vaccine, vector-nr, rS-Ad26, PF, 0.5 mL 1 completed Not Available [facility] 10/20/2022 02:39:00 zoster recombinant 5 completed Not Available [facility] 12/10/2024 14:20:09 zoster recombinant 5 completed Not Available [facility] 12/10/2024 14:20:09 Past Encounters Encounter ID Performer Location Encounter Start Date Encounter Closed Date Diagnosis/Indication Diagnosis SNOMED-CT Code Diagnosis ICD10 Code Diagnosis IMO Codes Diagnosis Note [id number] REKHA MONTAGUE PA-C [facility] ([facility]) [address] [place] [address] 12/10/2024 14:19:40 12/10/2024 15:20:36 Type 2 diabetes mellitus without complication 997197437 E11.9 stop trulicity once current rx gone. start ozempic 1 mg weekly. Bilateral carpal tunnel syndrome 6348354094 6658992 G56.03 200966 Triggering of digit 2399 43756 M65.624 7742290 Health Concerns Section Related Observation LastModified by Organization Detai ls LastModified Time None Recorded Concern Status LastModified by Organization Details LastModified Time None Recorded Payers Encounter Date Sequence Insurance Name Policy Number Policy Otto Covered Member ID Otto Member ID Guarantor Name 12/10/2024 1 [place] Shruti Edward Roger [id number] Shruti Duran Notes Date Note Type Note Provider Name and Address Organization Details Recorded Time 12/10/2024 text/html Musculoskeletal PainReported by PatientHPIFor quality, patient reportssharp,tingling, anddull. For severity, patient reportsworsening,inter feres with sleep, andinterferes with work/school. For associated symptoms, patient reportsweak limbsandtingling. For location, patient reportsbilateral neck,right hand, andright third finger. For duration, patient reportspresent for 1-6 months. For timing, patient reportsconstant,pain at night, andgradual. For alleviating factors, patient reportschanging position. For aggravating factors, patient reportsmovement/positi oning,bending over, andtwisting. For adls affected, patient reportswalking,sweepin g,mopping,bathing,dres sing,eating, andclimbing stairs. Care Management - DiabetesReported by [...] 1 months. pops back and forth REKHA MONTAGUE PA-C [address] [place] [address], [phone], [facility] 12/10/2024 15:15:56 OBGyn Episode No OBEpisode recorded.
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
[2025-03-09 18:15] VITALS: BP 147/91; PULSE 95; RESP 17; TEMP 36.8; O2SAT 97; BMI 50.8
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
[2025-03-09 18:37] VITALS: BP 133/87
[2025-03-09] MEDS: tetanus-dipt-pertussis 0.5 mL SDV IM (18:42)
[2025-03-09 19:59] VITALS: PULSE 80; O2SAT 97
== END 2025-03-09 20:01 | disposition home or self-care (01) ==
PROVIDERS: Emergency Provider Emergency Medicine; PCP Physician Assistant
DX: S61.412A Laceration without foreign body of left hand, initial encounter (principal); W26.0XXA Contact with knife, initial encounter; Z23 Encounter for immunization
CPT/HCPCS: 12001; 90471; 90715; 99283; J9999